=== PATIENT | female | born 1990 | race Caucasian/White ===

== ENCOUNTER 2016-03-05 21:20 | Inpatient (IN) | payer BC, OTHER ==
[~2016-03-05] VITALS: Ht 152.4 cm; Wt 46.6 kg
[~2016-03-05 21:20] MED LIST: ASCA500 PO; BCPILLS PO; CHOL100010 PO; Hydrocort PO; MULTI PROBIOTIC PO; VITAMIN PO; [UNRECOGNIZED DRUG - CODE] PO; [UNRECOGNIZED DRUG - OTHER] PO
[2016-03-05] MEDS ORDERED: SODIUM CHLORIDE 0.9% 1000ML 1,000 ML IV STA (21:44)
--- NOTE | 2016-03-05 21:49 | EMERGENCY ROOM VISIT NOTE ---
History Report prepared by Farida: Veronica Sanders Under the Supervision of: Dr. Quan Brizuela M.D. 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 The patient admits to taking fifteen 500 mg tablets of Tylenol and 10 Abilify tablets in attempts to kill herself. She states that she has been planning this for the past couple of weeks. She does not know what triggered her to do this today. The patient has a history of anxiety and depression. She states that she has been feeling generally more depressed. She admits to wanting to . She takes medication for depression but states that she stopped taking them 3 weeks ago. The patient was driving around tonight after taking the medications and started to feel dizzy and afraid of dying so she came to the ED. Source of History: patient Onset: DRIER OPERATOR Position: other (mental health) Quality: other (suicidal) Timing: other (episode) Modifying Factors (Worsening): other (worsening depression) Note: Pt admits suicidal ideation. Review of Systems See HPI for pertinent positives & negatives. A total of 10 systems reviewed and were otherwise negative. Past Medical & Surgical Medical Problems: (1) Depression (2) Moderate recurrent major depression Family History Psychiatric condition Social History Smoking Status: Never Smoker Housing Status: lives with family Occupation Status: [employer] student Current/Historical Medications Scheduled Acetaminophen (Tylenol), 500 MG PO DIRECTED Amphetamine-Dextroamphetamine 30MG (Adderall Xr 30MG), 30 MG PO BID Aripiprazole (Abilify), 2 MG PO DIRECTED Control Pills ( Control Pills), 1 TAB PO HS Lamotrigine (Lamictal), 200 MG PO DAILY Allergies Coded Allergies: Sulfa Drugs (Verified Allergy, Intermediate, HIVES, 03/05/16) Gluten (Verified Adverse Reaction, Intermediate, Diarrhea/vomiting, 03/05/16 ) Lactose Intolerance (Verified Adverse Reaction, Mild, DIARRHEA, 03/05/16) Physical Exam Vital Signs Date Time Temp Pulse Resp B/P Pulse Ox O2 Delivery O2 Flow Rate FiO2 03/06/16 01:20 81 18 119/78 98 Room Air 03/06/16 00:12 89 16 129/85 98 03/05/16 22:47 86 16 118/99 98 03/05/16 22:16 Room Air 03/05/16 22:16 98 Room Air 03/05/16 22:13 103 03/05/16 21:25 36.8 134 20 166/91 100 Room Air Physical Exam GENERAL: Patient is a healthy-appearing well-nourished 25 year old female. HEAD: Normocephalic atraumatic EYES: Ocular movements intact pupils equal and react to light OROPHARYNX mucous membranes are moist no exudates present no erythema or edema present NECK: Supple no nuchal rigidity CHEST: Good equal expansion LUNGS: Clear and equal to auscultation CARDIAC: Normal S1 and S2 ABDOMEN: Soft nontender no guarding BACK: No CVA tenderness EXTREMITIES: No pain upon palpation normal muscle strength in all groups no clubbing cyanosis or edema NEURO: Patient is following commands is answering questions appropriately. Alert and oriented x3 Cranial Nerves 2-12 grossly intact PSYCH: Admits to suicidal ideation, denies homicidal ideation. Medical Decision & Procedures Laboratory Results 03/05/16 22:17 Red Blood Count 5.09, Mean Corpuscular Volume 82.3, Mean Corpuscular Hemoglobin 28.7, Mean Corpuscular Hemoglobin Concent 34.8, Mean Platelet Volume 9.3, Neutrophils (%) (Auto) 59.3, Lymphocytes (%) (Auto) 33.6, Monocytes (%) (Auto) 6.4, Eosinophils (%) (Auto) 0.3, Basophils (%) (Auto) 0.3, Neutrophils # (Auto) 4.51, Lymphocytes # (Auto) 2.55, Monocytes # (Auto) 0.49, Eosinophils # (Auto) 0.02, Basophils # (Auto) 0.02 Test 03/05/16 22:11 03/05/16 22:17 03/05/16 22:27 Urine Color YELLOW Urine Appearance CLEAR (CLEAR) Urine pH 5.5 (4.5-7.5) Urine Specific [place] 1.007 (1.000-1.030) Urine Protein NEG (NEG) Urine Glucose (UA) NEG (NEG) Urine Ketones NEG (NEG) Urine Occult Blood 1+ (NEG) Urine Nitrite NEG (NEG) Urine Bilirubin NEG (NEG) Urine Urobilinogen NEG (NEG) Urine Leukocyte Esterase MODERATE (NEG) Urine WBC (Auto) 10-30 /hpf (0-5) Urine RBC (Auto) 0-4 /hpf (0-4) Urine Hyaline Casts (Auto) 5-10 /lpf (0-5) Urine Epithelial Cells (Auto) >30 /lpf (0-5) Urine Bacteria (Auto) 3+ (NEG) Urine Opiates Screen NEG (NEG) Urine Methadone, Qualitative NEG (NEG) Urine Barbiturates NEG (NEG) Urine Phencyclidine (PCP) Level NEG (NEG) Ur Amphetamine/Methamphetamine NEG (NEG) MDMA (Ecstasy) Screen NEG (NEG) Urine Benzodiazepines Screen NEG (NEG) Urine Cocaine Metabolite NEG (NEG) Urine Marijuana (THC) NEG (NEG) White Blood Count 7.60 K/uL (4.8-10.8) Red Blood Count 5.09 M/uL (4.2-5.4) Hemoglobin 14.6 g/dL (12.0-16.0) Hematocrit 41.9 % (37-47) Mean Corpuscular Volume 82.3 fL (80-100) Mean Corpuscular Hemoglobin 28.7 pg (25-34) Mean Corpuscular Hemoglobin Concent 34.8 g/dl (32-36) Platelet Count 306 K/uL (130-400) Mean Platelet Volume 9.3 fL (7.4-10.4) Neutrophils (%) (Auto) 59.3 % Lymphocytes (%) (Auto) 33.6 % Monocytes (%) (Auto) 6.4 % Eosinophils (%) (Auto) 0.3 % Basophils (%) (Auto) 0.3 % Neutrophils # (Auto) 4.51 K/uL (1.4-6.5) Lymphocytes # (Auto) 2.55 K/uL (1.2-3.4) Monocytes # (Auto) 0.49 K/uL (0.11-0.59) Eosinophils # (Auto) 0.02 K/uL (0-0.5) Basophils # (Auto) 0.02 K/uL (0-0.2) RDW Standard Deviation 41.3 fL (36.4-46.3) RDW Coefficient of Variation 13.6 % (11.5-14.5) Immature Granulocyte % (Auto) 0.1 % Immature Granulocyte # (Auto) 0.01 K/uL (0.00-0.02) Prothrombin Time 10.1 SECONDS (9.0-12.0) Prothromb Time International Ratio 0.9 (0.9-1.1) Activated Partial Thromboplast Time 28.5 SECONDS (21.0-31.0) Partial Thromboplastin Ratio 1.1 Total Creatine Kinase 65 U/L (26-192) Lipase 78 U/L (73-393) Salicylates Level < 1.7 mg/dl (2.8-20) Ethyl Alcohol mg/dL < 3.0 mg/dl (0-3) Bedside Glucose 87 mg/dl (70-90) Labs reviewed by ED physician. Medications Administered Medications (Trade) Dose Ordered Sig/Dea Route Start Time Stop Time Status Last Admin Dose Admin Sodium Chloride (Nss 1000ml) 1,000 ml @ 999 mls/hr Q1H1M STAT IV 03/05/16 21:44 03/05/16 22:44 DC 03/05/16 21:44 999 MLS/HR Metoclopramide HCl 10 mg 10 mg NOW STAT IV 03/05/16 22:21 03/05/16 22:22 DC 03/05/16 22:44 10 MG Acetylcysteine/ Dextrose (Acetadote/D5 250ml) 237.5 ml @ 200 mls/hr ONE STAT IV 03/06/16 00:55 03/06/16 02:06 DC 03/06/16 01:17 200 MLS/HR Metoclopramide HCl (Reglan Inj) 10 mg NOW STAT IV 03/06/16 01:35 03/06/16 01:37 DC 03/06/16 01:40 10 MG ECG Indication: toxicologic Rate (beats per minute): 94 Rhythm: normal sinus Findings: no acute ischemic change, prolonged QT, no ectopy ED Course 2142: Past medical records reviewed. The patient was evaluated in room A3. A complete history and physical examination was performed. 4: NSS 1000 ml @ 999 mls/hr IV 2: I reassessed the patient at this time. 1: Reglan 10 mg IV 0004: I reassessed the patient at this time. She was sleeping comfortably. 0044: The patient's repeat Tylenol level is elevated. 0052: I spoke with Dr. Benítez. We discussed the patients results and treatment plan. The patient will be evaluated by the [facility] for further management. Medical Decision Differential diagnosis: Etiologies such as toxicologic, infection, hypoglycemia, electrolyte abnormalities, cardiac sources, intracerebral event, neurologic, as well as others were entertained. This is a 25-year-old female who presents emergency department 5 hours after taking Tylenol. The patient reports suicidal ideation. In addition the patient also took Abilify. Poison control was contacted. A Tylenol level was drawn at the 5 hour jared. This will be re-drawn in 2 hours. The redraw the acetaminophen level was much higher. For this reason the patient was started on N-acetylcysteine. The case was discussed with the hospitalist service Resident Physician Supervision Note: I was present with Dr. Ram during the history and exam. I discussed the case with the resident and agree with the findings and plan as documented in the note. Documented By: Quan Brizuela Consults Time Called: 45 Consulting Physician: Dr. Benítez Returned Call: [address] Benítez. We discussed the patients results and treatment plan. The patient will be evaluated by the [facility] for further management. Impression Primary Impression: Tylenol overdose Additional Impression: Suicidal ideation Scribe Attestation The scribe's documentation has been prepared under my direction and personally reviewed by me in its entirety. I confirm that the note above accurately reflects all work, treatment, procedures, and medical decision making performed by me. Departure Information Dispostion Being Evaluated By Hospitalist Referrals Carl Villanueva M.D. (PCP) Patient Instructions A Signature Page, My [facility]
[2016-03-05] MEDS ORDERED: ACET-1256 PO (22:13)
[2016-03-05] MEDS ORDERED: LAMO200T38 PO (22:13)
[2016-03-05] MEDS ORDERED: ARIP2TAB3 PO (22:13)
[2016-03-05] MEDS ORDERED: AMPH30CA3 PO (22:13)
[2016-03-05] MEDS ORDERED: METOCLOPRAMIDE HCL INJ 5 MG/ML 2 ML VIAL IV STA (22:21)
[2016-03-05 22:30] LABS: BASO % 0.3 %; BASO ABS # 0.02 K/uL (0-0.2); COMPLETE YES; EOS % 0.3 %; HEMATOCRIT 41.9 % (37-47); IG% 0.1 %; LYMPH % 33.6 %; LYMPH ABS # 2.55 K/uL (1.2-3.4); MEAN CELL VOLUME 82.3 fL (80-100); MEAN CORPUSCULAR HEMOGLOBIN 28.7 pg (25-34); MEAN CORPUSCULAR HGB CONC 34.8 g/dl (32-36); MEAN PLATELET VOLUME 9.3 fL (7.4-10.4); MONO % 6.4 %; NEUT % 59.3 %; PLATELET COUNT 306 K/uL (130-400); RED BLOOD COUNT 5.09 M/uL (4.2-5.4)
--- NOTE | 2016-03-05 22:30 | EMERGENCY ROOM VISIT NOTE ---
History First contact with patient: 21:45 Chief Complaint: OVERDOSE (INTENTIONAL) Stated Complaint: TOOK 15 TYLENOL 500 MG/10 ABILIFY 2MG History of Present Illness The patient is a 25 year old female who presents to the Emergency Room with intentional overdose She took pills at ~5-6pm because she doesn't want to be here anymore because she 's tired of feeling depressed. She denies a specific trigger and is unable to explain what prevented her from doing this sooner, but said that she has been planning to overdose on her pills for a few of weeks now. She stopped her medication a ~3 weeks ago on her own accord, because she was frustrated that they are not helping. She didn't tell anyone about her plan, nor did she leave a note. She says she took 15 Tylenol and 10 Abilify tablets. She denies concurrent use of other recreational or prescription drugs or alcohol. Upon taking the pills, she began driving around. Then she became a little bit dizzy and started to become afraid of , so she drove herself to the hospital. She says feels overwhelmed right, but does not admit to any remorse and she unsure if she will do it again. She is currently feeling nauseous/queasy, but she has had no vomiting thus far. No CP /dyspnea. No constipation/diarrhea. Previous suicide attempt ~5-6 years ago. Same thing happened (pill overdose) and she brought herself to the hospital that time also Previous admission in hospital a few months ago for suicidal thoughts, but no suicidal attempt She has no access to weapons. Review of Systems See HPI for pertinent positives and negatives. A total of ten systems were reviewed and were otherwise negative. Past Medical/Surgical History Medical Problems: (1) Depression (2) Moderate recurrent major depression Social History Smoking Status: Never Smoker Occupation Status: [employer] student Current/Historical Medications Scheduled Acetaminophen (Tylenol), 500 MG PO DIRECTED Amphetamine-Dextroamphetamine 30MG (Adderall Xr 30MG), 30 MG PO BID Aripiprazole (Abilify), 2 MG PO DIRECTED Control Pills ( Control Pills), 1 TAB PO HS Lamotrigine (Lamictal), 200 MG PO DAILY Allergies Coded Allergies: Sulfa Drugs (Verified Allergy, Intermediate, HIVES, 03/05/16) Gluten (Verified Adverse Reaction, Intermediate, Diarrhea/vomiting, 03/05/16 ) Lactose Intolerance (Verified Adverse Reaction, Mild, DIARRHEA, 03/05/16) Physical Exam Vital Signs Date Time Temp Pulse Resp B/P Pulse Ox O2 Delivery O2 Flow Rate FiO2 03/06/16 00:12 89 16 129/85 98 03/05/16 22:47 86 16 118/99 98 03/05/16 22:16 Room Air 03/05/16 22:16 98 Room Air 03/05/16 22:13 103 03/05/16 21:25 36.8 134 20 166/91 100 Room Air Physical Exam GENERAL: alert, thin, sitting in bed, no acute distress, non-toxic HEAD: Normocephalic, atraumatic. No sinus tenderness. EYES: PERRL, EOMI, normal conjunctiva OROPHARYNX: no exudate, no erythema, lips, buccal mucosa, and tongue normal and mucous membranes are dry NECK: supple, no nuchal rigidity, no adenopathy, non-tender LUNGS: Clear to auscultation. Normal chest wall mechanics, good air entry. No crepitations, crackles, or wheezes HEART: no murmurs, S1 normal and S2 normal CHEST: No reproducible tenderness. ABDOMEN: abdomen soft, non-tender, normo-active bowel sounds, no masses, no rebound or guarding. BACK: Back is symmetrical on inspection, no deformities, no midline tenderness, no CVA tenderness. SKIN: Warm, pink, dry. No erythema, rashes, or bruising. EXTREMITIES: Grossly normal. Moving all 4 limbs, strength 5/5. No pitting edema. Calves non tender. NEURO: Alert, Ox3. No focal deficits. Normal sensorium, cranial nerves II-XII grossly intact, normal speech. PSYCH: Depressed mood and affect. Medical Decision & Procedures Laboratory Results 03/05/16 22:17 Red Blood Count 5.09, Mean Corpuscular Volume 82.3, Mean Corpuscular Hemoglobin 28.7, Mean Corpuscular Hemoglobin Concent 34.8, Mean Platelet Volume 9.3, Neutrophils (%) (Auto) 59.3, Lymphocytes (%) (Auto) 33.6, Monocytes (%) (Auto) 6.4, Eosinophils (%) (Auto) 0.3, Basophils (%) (Auto) 0.3, Neutrophils # (Auto) 4.51, Lymphocytes # (Auto) 2.55, Monocytes # (Auto) 0.49, Eosinophils # (Auto) 0.02, Basophils # (Auto) 0.02 03/05/16 22:17 Test 03/05/16 22:11 03/05/16 22:17 03/05/16 22:27 03/06/16 00:03 Urine Color YELLOW Urine Appearance CLEAR (CLEAR) Urine pH 5.5 (4.5-7.5) Urine Specific [place] 1.007 (1.000-1.030) Urine Protein NEG (NEG) Urine Glucose (UA) NEG (NEG) Urine Ketones NEG (NEG) Urine Occult Blood 1+ (NEG) Urine Nitrite NEG (NEG) Urine Bilirubin NEG (NEG) Urine Urobilinogen NEG (NEG) Urine Leukocyte Esterase MODERATE (NEG) Urine WBC (Auto) 10-30 /hpf (0-5) Urine RBC (Auto) 0-4 /hpf (0-4) Urine Hyaline Casts (Auto) 5-10 /lpf (0-5) Urine Epithelial Cells (Auto) >30 /lpf (0-5) Urine Bacteria (Auto) 3+ (NEG) White Blood Count 7.60 K/uL (4.8-10.8) Red Blood Count 5.09 M/uL (4.2-5.4) Hemoglobin 14.6 g/dL (12.0-16.0) Hematocrit 41.9 % (37-47) Mean Corpuscular Volume 82.3 fL (80-100) Mean Corpuscular Hemoglobin 28.7 pg (25-34) Mean Corpuscular Hemoglobin Concent 34.8 g/dl (32-36) Platelet Count 306 K/uL (130-400) Mean Platelet Volume 9.3 fL (7.4-10.4) Neutrophils (%) (Auto) 59.3 % Lymphocytes (%) (Auto) 33.6 % Monocytes (%) (Auto) 6.4 % Eosinophils (%) (Auto) 0.3 % Basophils (%) (Auto) 0.3 % Neutrophils # (Auto) 4.51 K/uL (1.4-6.5) Lymphocytes # (Auto) 2.55 K/uL (1.2-3.4) Monocytes # (Auto) 0.49 K/uL (0.11-0.59) Eosinophils # (Auto) 0.02 K/uL (0-0.5) Basophils # (Auto) 0.02 K/uL (0-0.2) RDW Standard Deviation 41.3 fL (36.4-46.3) RDW Coefficient of Variation 13.6 % (11.5-14.5) Immature Granulocyte % (Auto) 0.1 % Immature Granulocyte # (Auto) 0.01 K/uL (0.00-0.02) Prothrombin Time 10.1 SECONDS (9.0-12.0) Prothromb Time International Ratio 0.9 (0.9-1.1) Activated Partial Thromboplast Time 28.5 SECONDS (21.0-31.0) Partial Thromboplastin Ratio 1.1 Anion Gap 11.0 mmol/L (3-11) Est Creatinine Clear Calc Drug Dose 100.0 ml/min Estimated GFR () 140.6 Estimated GFR (Non- 121.3 BUN/Creatinine Ratio 9.4 (10-20) Calcium Level 8.7 mg/dl (8.5-10.1) Total Bilirubin 0.3 mg/dl (0.2-1) Direct Bilirubin < 0.1 mg/dl (0-0.2) Aspartate Amino Transf (AST/SGOT) 15 U/L (15-37) Alanine Aminotransferase (ALT/SGPT) 22 U/L (12-78) Alkaline Phosphatase 82 U/L (45-117) Total Creatine Kinase 65 U/L (26-192) Total Protein 7.7 gm/dl (6.4-8.2) Albumin 4.4 gm/dl (3.4-5.0) Lipase 78 U/L (73-393) Salicylates Level < 1.7 mg/dl (2.8-20) Ethyl Alcohol mg/dL < 3.0 mg/dl (0-3) Bedside Glucose 87 mg/dl (70-90) Acetaminophen Level 140 ug/ml (10-30) Medications Administered Medications (Trade) Dose Ordered Sig/Eda Route Start Time Stop Time Status Last Admin Dose Admin Sodium Chloride (Nss 1000ml) 1,000 ml @ 999 mls/hr Q1H1M STAT IV 03/05/16 21:44 03/05/16 22:44 DC 03/05/16 21:44 999 MLS/HR Metoclopramide HCl 10 mg 10 mg NOW STAT IV 03/05/16 22:21 03/05/16 22:22 DC 03/05/16 22:44 10 MG Acetylcysteine/ Dextrose (Acetadote/D5 250ml) 237.5 ml @ 200 mls/hr ONE STAT IV 03/06/16 00:55 03/06/16 02:06 03/06/16 01:17 200 MLS/HR Metoclopramide HCl (Reglan Inj) 10 mg NOW STAT IV 03/06/16 01:35 03/06/16 01:37 DC 03/06/16 01:40 10 MG ECG Indication: toxicologic Rhythm: normal sinus Findings: no acute ischemic change, prolonged QT, no ectopy Medical Decision 25 year old female presented with intentional overdose The patient was evaluated in room A3. A complete history and physical exam was performed. Differential includes overdose on Tylenol/aspirin/ethanol, ethylene glycol, methanol, prescribed medications, not prescribe medications/street drugs, metabolic process, traumatic process. Patient was given IV metoclopramide for symptom relief. Additionally, 1L of IV normal saline was given to improve hydration status. [facility] [place] called and informed of case. EKG showed normal sinus rhythm with QT prolongation Lab work was performed. CBC was normal, BMP showed borderline hypokalemia, but was otherwise unremarkable, LFT values were within normal limits, as were her coagulation profile and lipase. Urinalysis showed contamination, with occult blood and questionable evidence of urinary infection. Urine toxicology screen was showed elevation in acetaminophen, but not in salicylates levels. According to the acetaminophen nomogram, the acetaminophen level was borderline, so a second level was drawn 2 hours later. The second draw revealed acetaminophen levels of 140, which is a toxic level for 7 hours after ingestion. Patient prescribed acetylcysteine antidote. Case discussed with hospitalist Dr. Benítez, who was agreeable to assess patient for admission to hospital for ongoing management and psych consult in the morning. Impression Primary Impression: Intentional acetaminophen overdose Additional Impressions: Depression, Vomiting Departure Information Referrals Carl Villanueva M.D. (PCP) Patient Instructions A Signature Page, My [facility]
[2016-03-05 22:40] LABS: INR 0.9 (0.9-1.1); PARTIAL THROMBOPLASTIN RATIO 1.1; PROTHROMBIN TIME (PATIENT) 10.1 SECONDS (9.0-12.0)
[2016-03-05 22:44] LABS: URINE APPEARANCE CLEAR (CLEAR); URINE BILIRUBIN NEG (NEG); URINE COLOR YELLOW; URINE EPITHELIAL CELL AUTO >30 /lpf (0-5); URINE NITRITE NEG (NEG); URINE PH 5.5 (4.5-7.5); URINE SPECIFIC GRAVITY 1.007 (1.000-1.030); UROBILINOGEN NEG (NEG)
[2016-03-05 22:48] LABS: ALT/SGPT 22 U/L (12-78); BLOOD UREA NITROGEN 6 mg/dl (7-18); BUN/CREATININE RATIO 9.4 (10-20); CALCIUM 8.7 mg/dl (8.5-10.1); CARBON DIOXIDE 25 mmol/L (21-32); CHLORIDE 105 mmol/L (98-107); CREATININE 0.67 mg/dl (0.60-1.20); GLUCOSE 87 mg/dl (70-99); POTASSIUM 3.2 mmol/L (3.5-5.1); SODIUM 141 mmol/L (136-145)
[2016-03-05 22:50] LABS: MANUAL MICROSCOPIC REQUIRED? NO; REVIEW REQ? NO
[2016-03-05 22:50] LABS: ACETAMINOPHEN 118 ug/ml (10-30)
[2016-03-05 22:51] LABS: ALKALINE PHOSPHATASE 82 U/L (45-117); AST/SGOT 15 U/L (15-37)
[2016-03-06] MEDS ORDERED: ACETYLCYSTEINE IV 21 HOUR REGIMEN IV STA ×2 (00:43→01:32)
[2016-03-06] MEDS ORDERED: ACETYLCYSTEINE IV STA (00:55)
[2016-03-06] MEDS ORDERED: DEXTROSE 5% IV STA (00:55)
[2016-03-06] MEDS ORDERED: POTASSIUM CHLR 20 MEQ / WTR 20 MEQ in PREMIXED WATER 100 ML IV STA (01:32)
[2016-03-06] MEDS ORDERED: METOCLOPRAMIDE HCL INJ 5 MG/ML 2 ML VIAL IV STA (01:35)
[2016-03-06] MEDS ORDERED: ACETAMINOPHEN 325 MG TAB PO PRN (01:45)
[2016-03-06] MEDS ORDERED: ALUMINUM/MAGNESIUM/SIMETH (MAALOX MAX) 30 ML UDC PO PRN (01:45)
[2016-03-06] MEDS ORDERED: POLYETHYLENE (MIRALAX) 17 GM PACK PO PRN (01:45)
[2016-03-06] MEDS ORDERED: ONDANSETRON INJ 2 MG/ML 2 ML VIAL IV PRN (01:45)
[2016-03-06] MEDS ORDERED: MAGNESIUM HYDROXIDE SUSP 30 ML UDC PO PRN (01:45)
[2016-03-06] MEDS ORDERED: MAGNESIUM SULFATE 1GM / D5W 1 GM in PREMIXED IN D5W 100 ML IV SCH (01:45)
[2016-03-06] MEDS ORDERED: DEXTROSE 5% IV ONE ×2 (02:00→06:00)
[2016-03-06] MEDS ORDERED: ACETYLCYSTEINE IV ONE ×2 (02:00→06:00)
--- NOTE | 2016-03-06 02:07 | History and Physical ---
History & Physical Date & Time of Service: Mar 06, 2016 at 01:52 Chief Complaint: Took 15 Tylenol 500 Mg/10 Abilify 2MG Primary Care Physician: No Doctor, Assigned History of Present Illness Source: patient 25 y/o F w/Hx major depressive disorder presents following an intentional overdose with Tylenol and Abilify. She reports ingesting 10 tablets of 2mg Abilify in addition to 15 tablets of 500mg Tylenol. She denies acute precipitating factors in her decision. She states that she has failed several depression medication in the past and follows with a psychiatrist in [place] which she has not seen for an extended period. She was treated for nausea in the ER but is otherwise asymptomatic. Her Acetaminophen is toxic and she will be admitted for treatment with Acetadote. 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 Smoking Status: Never Smoker Occupational Status: [employer] student Immunizations History of Influenza Vaccine: No History of Tetanus Vaccine?: Yes Tetanus Immunization Date: Jan 28, 2008 History of Pneumococcal: No History of Hepatitis B Vaccine: No Allergies Coded Allergies: Sulfa Drugs (Verified Allergy, Intermediate, HIVES, 03/05/16) Gluten (Verified Adverse Reaction, Intermediate, Diarrhea/vomiting, 03/05/16 ) Lactose Intolerance (Verified Adverse Reaction, Mild, DIARRHEA, 03/05/16) Home Medications Scheduled Acetaminophen (Tylenol), 500 MG PO DIRECTED Amphetamine-Dextroamphetamine 30MG (Adderall Xr 30MG), 30 MG PO BID Aripiprazole (Abilify), 2 MG PO DIRECTED Control Pills ( Control Pills), 1 TAB PO HS Lamotrigine (Lamictal), 200 MG PO DAILY Review of Systems Constitutional: No chills, No fever, No sweats Eyes: No worsening of vision ENT: No hearing loss, No nasal symptoms, No unusual epistaxis Respiratory: No cough, No sputum, No wheezing Cardiovascular: No PND, No chest pain, No orthopnea Abdomen: + nausea, No pain, No vomiting Musculoskeletal: No joint pain, No muscle pain Genitourinary - Female: No dysuria, No hematuria, No urinary frequency, No urinary incontinence, No urinary retention, No urinary urgency Neurologic: No memory loss, No paralysis, No weakness Psychiatric: + anhedonism, + depression symptoms Endocrine: No excessive thirst, No fatigue Hematologic / Lymphatic: No abnormal bleeding/bruising Integumentary: No rash Allergic / Immunologic: No environmental allergies Physical Exam Vital Signs Date Time Temp Pulse Resp B/P Pulse Ox O2 Delivery O2 Flow Rate FiO2 03/06/16 00:12 89 16 129/85 98 03/05/16 22:47 86 16 118/99 98 03/05/16 22:16 Room Air 03/05/16 22:16 98 Room Air 03/05/16 22:13 103 03/05/16 21:25 36.8 134 20 166/91 100 Room Air General Appearance: WD/WN, no apparent distress, + pertinent finding (Plesant, thin young F in no distress) Head: normocephalic Eyes: normal inspection, PERRL, EOMI ENT: normal ENT inspection Neck: supple, no adenopathy, thyroid normal, no JVD Respiratory/Chest: chest non-tender, lungs clear, normal breath sounds, no respiratory distress, no accessory muscle use Cardiovascular: regular rate, rhythm, no edema, no gallop, no JVD, no murmur, normal peripheral pulses Abdomen/GI: normal bowel sounds, non tender, soft Back: normal inspection Extremities/Musculoskelatal: normal inspection, no calf tenderness, normal capillary refill, no pedal edema, normal range of motion Neurologic/Psych: rn emergency room II-XII nml as tested, no motor/sensory deficits, alert, normal mood/affect, normal reflexes, oriented x 3 Skin: normal color, warm/dry, no rash, + pertinent finding (Some acne is present) Diagnostics Laboratory Results Results Past 24 Hours Test 03/05/16 22:11 03/05/16 22:17 03/05/16 22:27 03/06/16 00:03 Range/Units Urine Color YELLOW Urine Appearance CLEAR CLEAR Urine pH 5.5 4.5-7.5 Urine Specific Darby 1.007 1.000-1.030 Urine Protein NEG NEG Urine Glucose (UA) NEG NEG Urine Ketones NEG NEG Urine Occult Blood 1+ NEG Urine Nitrite NEG NEG Urine Bilirubin NEG NEG Urine Urobilinogen NEG NEG Urine Leukocyte Esterase MODERATE NEG Urine WBC (Auto) 10-30 0-5 /hpf Urine RBC (Auto) 0-4 0-4 /hpf Urine Hyaline Casts (Auto) 5-10 0-5 /lpf Urine Epithelial Cells (Auto) >30 0-5 /lpf Urine Bacteria (Auto) 3+ NEG White Blood Count 7.60 4.8-10.8 K/uL Red Blood Count 5.09 4.2-5.4 M/uL Hemoglobin 14.6 12.0-16.0 g/dL Hematocrit 41.9 37-47 % Mean Corpuscular Volume 82.3 80-100 fL Mean Corpuscular Hemoglobin 28.7 25-34 pg Mean Corpuscular Hemoglobin Concent 34.8 32-36 g/dl Platelet Count 306 130-400 K/uL Mean Platelet Volume 9.3 7.4-10.4 fL Neutrophils (%) (Auto) 59.3 % Lymphocytes (%) (Auto) 33.6 % Monocytes (%) (Auto) 6.4 % Eosinophils (%) (Auto) 0.3 % Basophils (%) (Auto) 0.3 % Neutrophils # (Auto) 4.51 1.4-6.5 K/uL Lymphocytes # (Auto) 2.55 1.2-3.4 K/uL Monocytes # (Auto) 0.49 0.11-0.59 K/uL Eosinophils # (Auto) 0.02 0-0.5 K/uL Basophils # (Auto) 0.02 0-0.2 K/uL RDW Standard Deviation 41.3 36.4-46.3 fL RDW Coefficient of Variation 13.6 11.5-14.5 % Immature Granulocyte % (Auto) 0.1 % Immature Granulocyte # (Auto) 0.01 0.00-0.02 K/uL Prothrombin Time 10.1 9.0-12.0 SECONDS Prothromb Time International Ratio 0.9 0.9-1.1 Activated Partial Thromboplast Time 28.5 21.0-31.0 SECONDS Partial Thromboplastin Ratio 1.1 Sodium Level 141 136-145 mmol/L Potassium Level 3.2 3.5-5.1 mmol/L Chloride Level 105 98-107 mmol/L Carbon Dioxide Level 25 21-32 mmol/L Anion Gap 11.0 3-11 mmol/L Blood Urea Nitrogen 6 7-18 mg/dl Creatinine 0.67 0.60-1.20 mg/dl Est Creatinine Clear Calc Drug Dose 100.0 ml/min Estimated GFR () 140.6 Estimated GFR (Non- 121.3 BUN/Creatinine Ratio 9.4 10-20 Random Glucose 87 70-99 mg/dl Calcium Level 8.7 8.5-10.1 mg/dl Total Bilirubin 0.3 0.2-1 mg/dl Direct Bilirubin < 0.1 0-0.2 mg/dl Aspartate Amino Transf (AST/SGOT) 15 15-37 U/L Alanine Aminotransferase (ALT/SGPT) 22 12-78 U/L Alkaline Phosphatase 82 45-117 U/L Total Creatine Kinase 65 26-192 U/L Total Protein 7.7 6.4-8.2 gm/dl Albumin 4.4 3.4-5.0 gm/dl Lipase 78 73-393 U/L Salicylates Level < 1.7 2.8-20 mg/dl Acetaminophen Level 118 140 10-30 ug/ml Ethyl Alcohol mg/dL < 3.0 0-3 mg/dl Bedside Glucose 87 70-90 mg/dl Impression Assessment and Plan 25 y/o F w/Hx major depressive disorder presents following an intentional overdose with Tylenol and Abilify. She reports ingesting 10 tablets of 2mg Abilify in addition to 15 tablets of 500mg Tylenol. She denies acute precipitating factors in her decision. She states that she has failed several depression medication in the past and follows with a psychiatrist in [place] which she has not seen for an extended period. She was treated for nausea in the ER but is otherwise asymptomatic. Her Acetaminophen is toxic and she will be admitted for treatment with Acetadote. 1) Overdose with Acetaminophen and Abilify - pt will be monitored on telemetry, placed on Acetadote protocol, Will be kept 1 to 1 and we will consult psychiatry. No current QT prolongation is present on EKG - will avoid additional doses of Abilify and Lamictal pending AM assessment. 2) Major depression - psychiatry consulted 3) Hypokalemia present on initial labs - replaced and Mg provided Full code - Heparin prophylaxis Total time for this admit including review of EKG, labs, available records - med rec and discusison with ER MD and Pt 35 min Level of Care Telemetry Resuscitation Status FULL RESUSCITATION VTE Prophylaxis VTE Risk Assessment Done? Y/N: Yes Risk Level: Very Low Given or contraindicated: Unfractionated heparin SQ
[2016-03-06] MEDS ORDERED: MAGNESIUM SULFATE 1GM / D5W 1 GM BAG IV STA (02:25)
[2016-03-06] MEDS ORDERED: POTASSIUM CHLORIDE 10 MEQ / 100ML WTR IV STA (02:27)
[2016-03-06] MEDS ORDERED: MAGNESIUM SULFATE 1GM / D5W 1 GM BAG ONE (03:10)
[2016-03-06 04:25] LABS: BENZODIAZEPINE, URINE NEG (NEG); COCAINE,URINE NEG (NEG); PHENCYCLIDINE, URINE NEG (NEG)
[2016-03-06] MEDS: HEPARIN SOD 5000 UNIT/0.5 ML CARP SQ SCH ×3 (06:00→22:00)
[2016-03-06] MEDS: D5NSS + 20MEQ KCL 1,000 ML IV SCH ×3 (07:46→22:21)
[2016-03-06 08:23] VITALS: BP 118/79; PULSE 108; TEMP 36.8; O2SAT 99; Ht 152.4 cm; Wt 46.6 kg
[2016-03-06 09:00] VITALS: BP 134/92; PULSE 106; TEMP 36.6; O2SAT 96
[2016-03-06 11:08] VITALS: BP 136/90; PULSE 98; TEMP 36.3; O2SAT 100
[2016-03-06 11:43] LABS: ALKALINE PHOSPHATASE 61 U/L (45-117); ALT/SGPT 23 U/L (12-78); AST/SGOT 12 U/L (15-37); BLOOD UREA NITROGEN 2 mg/dl (7-18); BUN/CREATININE RATIO 4.5 (10-20); CALCIUM 7.5 mg/dl (8.5-10.1); CARBON DIOXIDE 25 mmol/L (21-32); CHLORIDE 111 mmol/L (98-107); CREATININE 0.55 mg/dl (0.60-1.20); GLUCOSE 164 mg/dl (70-99); MAGNESIUM 2.4 mg/dl (1.8-2.4); PHOSPHORUS 1.4 mg/dl (2.5-4.9); POTASSIUM 3.6 mmol/L (3.5-5.1); SODIUM 143 mmol/L (136-145)
[2016-03-06] MEDS ORDERED: POTASSIUM PHOS 3 MMOL/1 ML INFUSION IV STA (12:06)
[2016-03-06] MEDS ORDERED: POTASSIUM PHOSPHATE INJ 24 MMOL in SODIUM CHLORIDE 0.9% 500ML 500 ML IV SCH (12:45)
--- NOTE | 2016-03-06 14:04 | CONSULTATION REPORT ---
DATE OF CONSULTATION: 03/06/2016 DATE OF CONSULTATION: 03/06/2016. IDENTIFYING DATA: Shayna Andino is a 25-year-old woman, currently living in [place], [place], who was admitted to the medical floor following an intentional toxic ingestion of Tylenol and Abilify. Psychiatry is consulted to evaluate depression. Information is gathered from the patient and considered to be reliable. CHIEF COMPLAINT: "I took Tylenol and Abilify". HISTORY OF PRESENT ILLNESS: Shayna Andino is a 25-year-old woman, known to our mental health unit from a hospitalization in 2010. At that time she had overdosed on multiple substances in her depression and chronic anxiety. She was stressed at that time by school, not feeling she fit here at [employer]. Since that time, she has been following with a [place] psychiatrist, Dr. Renata Roberson and sees a therapist, Angela Pulido in [place]. She has not seen her psychiatrist since at least November. She reports that she has been increasingly depressed over recent months and has been having suicidal thinking off and on since before November. She denies that there has been any trigger to her worsening mood or that there are any stressful events in her life at this time. She notes that she has had many trials of medications in the past, none have proved to be beneficial to her mood and anxiety. She is currently on Lamictal 200 mg a day, not for bipolarity but in deference to the fact that traditional antidepressants have not been beneficial. She is currently employed part-time at a bank and in school, although this past fall had not done well in school. She has not planned to return for the spring in deference to her depression. She notes that she has had chronic anxiety, especially with respect to school, even in high school. She reports chronic anxiety that she remembers as early as kindergarten. Yesterday, she got up in the morning and had been preparing to go to work at 1 when work called and said that she missed her shift that was apparently scheduled to start at 8. This was stressful to her, but not the trigger to her suicidality. She was home alone as she lives with her parents, was sleeping and watching TV off and on and by 5:00 p.m. decided that she wanted to end her life and so took 15 Tylenol tablets and 10 Abilify tablets. After taking them, she got in her car and drove around and at some point decided that she did not want to and so drove herself to the Emergency Room. Today, she continues to endorse an extremely depressed mood with hopelessness. She admits to the intentional toxic ingestion in a suicide attempt. She reports that in recent months, her appetite has been down, although her weight has been stable. Her sleep is described as "irregular" with times of hypersomnia and others of insomnia. Her anxiety is constant, describing feeling easily overwhelmed, especially by school. She again notes that this is a chronic pattern. She does experience panic attacks that can occur as frequently as daily when she is in school. She also experiences them outside of school, usually triggered by worrying about school. She denies any self-injurious behaviors. She denies any auditory or visual hallucinations. She denies any symptoms of an eating disorder. She denies discrete episodes of euphoric mood, sleeplessness or pleasure seeking behaviors that would be congruent with a bipolar disorder. CURRENT OUTPATIENT MEDICATIONS: 1. Lamictal 200 mg daily. 2. control pills. 3. Selegiline patch 90 mg daily. PAST PSYCH HISTORY: Again, the patient sees Dr. Renata Roberson in [place] for medications and Angela Pulido in [place] for therapy. She has been hospitalized twice previously, once on our mental health unit in 2010 after an overdose and the second in November of 2014 in [place] at [facility] [place], with depression and suicidality, but did not make an attempt. She denies any evidence of violence to self or others in the last 6 months. PRIOR MEDICATION TRIALS: Include but are not limited to: 1. Abilify -- did not work. 2. Zoloft -- did not work. 3. Cymbalta -- did not work. 4. Lexapro -- did not work. 5. Effexor -- did not work. 6. Wellbutrin -- did not work. ACCESS TO GUNS: Denies. ALLERGIES: 1. SULFA -- HIVES. 2. GLUTEN AND DAIRY TOLERANCE LEADING TO NAUSEA AND VOMITING. PAST MEDICAL HISTORY: 1. Boyd's syndrome. 2. Gluten intolerance. 3. Denies for personal history of obesity, diabetes, dyslipidemia, hypertension, or cardiovascular disease. 4. Denies history for head injury or seizure. 5. Tobacco use -- nonsmoker. FAMILY HISTORY: Positive for sister with an eating disorder. She denies family history for substance use or suicide. Medically, father has diabetes, hypertension and dyslipidemia. She denies family history for cardiovascular disease or obesity. SUBSTANCE USE HISTORY: The patient denies the use of alcohol, street drugs, organic substances, inhalants, abuse of over the counter medicines or prescription medicines in the last year. She has never had any consequences related to substances and has never been in substance use treatment. PERSONAL HISTORY: The patient grew up in [place] [facility]. She was raised by both her mother and father. Her father is an bench assembler electrical, father is a radiation set up technician. She has 2 sisters. She has good relationships with all of her family. 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 Current GPA is 3.4. She did not perform last semester and is not enrolled for the spring. She also worked at a bank part-time. She is not currently in a relationship and identifies as heterosexual. She has no children. There are no legal concerns. Psychological trauma history is denied. MENTAL STATUS EXAMINATION: A 25-year-old woman with light brown hair, dressed in a hospital gown, curled up on her right side in her 2nd floor bed. She is easily awakened to verbal and then alert and cooperative. She makes good eye contact. Her motor behavior is unremarkable. Her speech is for the most part of normal rate, volume, and tone, although at times a little bit garbled status post overdose. Her affect is flat to tearful. Her mood is depressed. Thought process is organized and goal directed. She denies thought disorder in the form of hallucinations or delusions. She endorses suicidal thoughts and an intentional toxic ingestion. She denies homicidal ideation. Today, she is fully oriented. Memory functions appear to be intact per conversation. Intelligence is estimated to be average. Insight and judgment are both impaired. VITAL SIGNS: Temperature 36.3, pulse 98, respirations 16, blood pressure 136/90, pulse ox 100% on room air. LABORATORIES: 1. CBC with diff -- within normal limits. 2. Chem profile -- notable for chloride 111, random glucose 164, calcium low at 7.5, phosphorus low 1.4. 3. Toxicology -- positive for Tylenol originally 118, climbing to 140 at midnight last night, down to 11 at 10:38 this morning. 4. Urinalysis -- positive for 3+ bacteria, greater than 30 epithelial, 5-10 hyaline casts, moderate leukocyte esterase and 1+ occult blood. 5. Coag studies -- within normal limits. REVIEW OF SYSTEMS: Positive for complaints of fatigue, depression, anxiety. PHYSICAL EXAMINATION: Exam performed by Dr. Benítez has been reviewed and accepted for our purposes. DIAGNOSES: 1. Major depressive disorder, recurrent, severe, without psychotic features. 2. Generalized anxiety disorder. PLAN: Has been reviewed with Dr. Rocío Mahoney. 1. Depression. -- The patient's med rec is not correct and should be reviewed as she says she is on Selegiline patch and Lamictal, not Abilify, Adderall or Zoloft. -- Would recommend remaining off medications until medically stable. -- Recommend inpatient hospitalization when medically cleared. The patient is willing to pursue this voluntarily. 2. Generalized anxiety disorder. -- The patient is somewhat sedated at this point status post overdose. Would hold medications until medically cleared. -- Will have the liaison nurse have her sign releases for her outpatient providers to begin the process of getting outpatient records. Thank you for allowing us to participate in this woman's care.
[2016-03-06 15:33] VITALS: BP 138/96; PULSE 85; TEMP 36.8; O2SAT 100
--- NOTE | 2016-03-06 17:00 | Psych Management Progress Note ---
Psychiatry Miscellaneous Date of Service: Mar 06, 2016. I personally participated in the case review and medical recommendations outlined in the psychiatric consultation documented by SHAMIR Almaguer.
[2016-03-06 19:51] LABS: INR 1.1 (0.9-1.1); PROTHROMBIN TIME (PATIENT) 11.4 SECONDS (9.0-12.0)
[2016-03-06 20:13] VITALS: BP 138/92; PULSE 78; TEMP 36.6; O2SAT 100
[2016-03-06 20:18] LABS: ALKALINE PHOSPHATASE 57 U/L (45-117); ALT/SGPT 19 U/L (12-78); AST/SGOT 15 U/L (15-37)
[2016-03-06] MEDS ORDERED: [UNRECOGNIZED DRUG - CODE] TOP (22:02)
[2016-03-06 23:09] VITALS: BP 135/86; PULSE 93; TEMP 36.7; O2SAT 100
[2016-03-07 04:58] VITALS: BP 124/85; PULSE 76; TEMP 36.7; O2SAT 99
[2016-03-07] MEDS: HEPARIN SOD 5000 UNIT/0.5 ML CARP SQ SCH (06:00)
[2016-03-07 07:55] VITALS: BP 127/92; PULSE 94; TEMP 36.8; O2SAT 98
--- NOTE | 2016-03-07 09:24 | Psychiatric Progress Notes ---
Psychiatric Progress Note Date of Service Mar 07, 2016. Notes ID: s/p tylenol and Noel OD, discussed with nursing CC: "I still need more help" HPI: no complaints overnight, aware her phosphorus is low/repleting and that psych meds are being held, regretful of OD, reports ambivalence about return to school but plans to stay in [place] area, from [place] but reconfirmed she travels to [facility] for psychiatry ROS: tired, denies GI c/o MSE: calm, cooperative, speech normal, thoughts organized, denies SI in hospital , no crockett. Imp: major depressive disorder, recurrent, severe without psychotic features Plan: remains agreeable to 201 when medically cleared, repeat phos pending continue to hold psych meds, no tylenol upon transfer to [facility] (assuming bed availability later today)
--- NOTE | 2016-03-07 09:34 | Discharge Instructions ---
Discharge Instructions Admission Reason for Admission: Depression,Tylenol Overdose Discharge Discharge Diagnosis / Problem: Intentional drug overdose Discharge Goals Goal(s): Decrease discomfort, Improve function, Increase independence, Learn about illness, Diagnostic testing, Therapeutic intervention, Prevent Disease Progression Activity Recommendations Activity Limitations: resume your previous activity . Instructions / Follow-Up Instructions / Follow-Up Patient stable for discharge to inpatient mental health unit Can likely continue medications in next 24 hrs Please recheck phosphorous level and replace as needed No further recommendations at this time Current Hospital Diet Patient's current hospital diet: Regular Diet Discharge Diet Recommended Diet: Regular Diet Pending Studies Studies pending at discharge: yes List of pending studies: bmp, mg, phos Medical Emergencies . Who to Call and When: Medical Emergencies: If at any time you feel your situation is an emergency, please call 911 immediately. . Non-Emergent Contact Non-Emergency issues call your: Primary Care Provider Call Non-Emergent contact if: you have a fever, your pain is worsening . . "Provider Documentation" section prepared by Daquan Luna. VTE Core Measure Inpt VTE Proph given/why not?: Unfractionated heparin SQ
[2016-03-07 09:38] LABS: BLOOD UREA NITROGEN < 1 mg/dl (7-18); CARBON DIOXIDE 23 mmol/L (21-32); CHLORIDE 112 mmol/L (98-107); CREATININE 0.57 mg/dl (0.60-1.20); GLUCOSE 72 mg/dl (70-99); MAGNESIUM 1.9 mg/dl (1.8-2.4); PHOSPHORUS 2.2 mg/dl (2.5-4.9); POTASSIUM 3.8 mmol/L (3.5-5.1); SODIUM 145 mmol/L (136-145)
[2016-03-07 10:00] VITALS: BP 127/92; PULSE 94; TEMP 36.8; O2SAT 98
[2016-03-07] MEDS ORDERED: POTASSIUM PHOS 3 MMOL/1 ML INFUSION IV STA (10:25)
--- NOTE | 2016-03-07 10:31 | Discharge Summary ---
Discharge Summary Admission Date: Mar 06, 2016 at 01:42 Discharge Date: Mar 07, 2016 Discharge Disposition: Home Principal Diagnosis: Intentional drug overdose Immunizations: Have You Had Influenza Vaccine: No History of Tetanus Vaccine?: Yes Tetanus Immunization Date: Jan 28, 2008 History of Pneumococcal: No History of Hepatitis B Vaccine: No Consultations: Psychiatry Medication Reconciliation Discontinued Medications: Control Pills ( Control Pills) Tab 1 TAB PO DAILY Lamotrigine (Lamictal) 200 Mg Tab 200 MG PO DAILY, TAB Selegiline Hcl (Emsam) 9 Mg Tdsy 9 MG TOP DAILY Discharge Exam Review of Systems: Constitutional: No chills, No fever Respiratory: No cough, No sputum Cardiovascular: No chest pain, No orthopnea Abdomen: No diarrhea, No nausea, No pain, No vomiting Musculoskeletal: No muscle pain Genitourinary - Female: No dysuria, No urinary frequency, No urinary incontinence, No urinary urgency Neurologic: No numbness/tingling, No paralysis, No weakness Psychiatric: + depression symptoms, + substance abuse, No anhedonism Physical Exam: General Appearance: WD/WN, + mild distress Neck: supple, no adenopathy Respiratory/Chest: chest non-tender, lungs clear Cardiovascular: no edema, no JVD Abdomen / GI: non tender, soft Neurologic/Psychiatric: alert, oriented x 3, + depressed affect Hospital Course 25 y/o F w hx major depressive disorder presents following an intentional overdose with Tylenol and Abilify. She reports ingesting 10 tablets of 2mg Abilify in addition to 15 tablets of 500mg Tylenol. She denies acute precipitating factors in her decision. She states that she has failed several depression medication in the past and follows with a psychiatrist in [place] which she has not seen for an extended period. She was treated for nausea in the ER but is otherwise asymptomatic. Her Acetaminophen is toxic and she will be admitted for treatment with Acetadote. Tylenol levels 118-->140- ->11 in less than 24 hrs. Ethanol level was <3 and salicylates < 1.7. 1) Overdose with Acetaminophen and Abilify - pt was monitored on telemetry, placed on Acetadote protocol, and kept on 1:1. No QT prolongation is present on EKG. Pt agreeable for 201 for further psychiatric assessment. 2) Major depression - psychiatry consulted, hold medications at this time due to recent OD. Will admit to inpt psych when bed available and allow for psych service to reinstate medications. 3) Electrolyte abnormalities replaced respectively. Total Time Spent: Greater than 30 minutes This includes examination of the patient, discharge planning, medication reconciliation, and communication with other providers. Discharge Instructions Please refer to the electronic Patient Visit Report (Discharge Instructions) for additional information.
[2016-03-07] MEDS ORDERED: POTASSIUM PHOSPHATE INJ 9 MMOL in SODIUM CHLORIDE 0.9% 250ML 250 ML IV SCH (11:00)
[2016-03-07 11:37] VITALS: BP 128/84; PULSE 78; TEMP 36.8; O2SAT 99
[2016-03-07 12:00] VITALS: O2SAT 99
[2016-03-16] MEDS ORDERED: LITH600C PO (09:11)
== END 2016-03-07 13:15 | DRG 918 ==
LOC: ENRESERVTM → ENRESERVDT → C.EDB 21:23 → C.EDINP 03-06 01:42 → EDBEDREQ 03-06 09:17 → C.2T 03-06 11:02
PROVIDERS: ADMIT Internal Medicine; ATTEND Hospitalist
DX: T39.1X2A Poisoning by 4-Aminophenol derivatives, intentional self-harm, initial encounter (principal); R45.851 Suicidal ideations; F33.2 Major depressive disorder, recurrent severe without psychotic features; F41.1 Generalized anxiety disorder; E87.6 Hypokalemia; R11.0 Nausea; Q96.9 Turner's syndrome, unspecified; Z81.8 Family history of other mental and behavioral disorders; Z83.3 Family history of diabetes mellitus; Z82.49 Family history of ischemic heart disease and other diseases of the circulatory system; Z83.49 Family history of other endocrine, nutritional and metabolic diseases